=== PATIENT | male | born 1975 | race Caucasian/White ===

== ENCOUNTER 2019-12-31 05:57 | Day surgery (SDC) | payer OTHER, SELFPAY ==
[2019-12-31 06:30] VITALS: BP 114/74; PULSE 85; RESP 16; TEMP 36.8; O2SAT 96; BMI 21.6
[2019-12-31] MEDS: Lactated Ringers 1,000 ML 100 ML IV (06:37)
[2019-12-31] MEDS: Bupivacaine Mpf 0.5% 30 ML VIAL (07:13)
[2019-12-31] MEDS: Cefazolin 2 GM in 0.9% Normal Saline 100 ML IV (07:28)
--- NOTE | 2019-12-31 07:30 | SPE_PTH ---
PATIENT: KAELYN THOMAS Jr. LOC: [facility] U#:[id number] AGE/SX: 44/M ROOM: RE12/31/[address]: Dr. Mushtaq Bryant MD : 1975 BED: DIS: 12/31/2019 SPEC #: [id number] RECD: 12/31/19 08:34 STATUS: DON REMark #: [id number] MARLEEN: 12/31/19 07:[address]: Mushtaq Bryant DEPT: SURGICAL PATHOLOGY RECD BY: Mac Montejo ENTERED: 12/31/19 09:39 SP TYPE: SPERMATOCE OT DR: Dr. Xochitl Juares, DO Tissues: SPERMATOCELE Procedures: Surgery Specimen Level III HEADER OPERATION: Left spermatocelectomy PRE-OP DIAGNOSIS: Left spermatocele TISSUE SUBMITTED: Left spermatocele sac MICROSCOPIC DIAGNOSIS Left spermatocele sac, excision: Consistent with spermatocele. Epididymis with no pathologic change. AM:danuta 01/03/20 MICROSCOPIC DESCRIPTION Slides are reviewed. GROSS DESCRIPTION Received in fixative is one container labeled with the patient's name and designated left spermatocele. The specimen consists of a collapsed cystic piece of tissue measuring 3.8 x 2.5 x 0.5 cm. The specimen is inked and serially sectioned and reveals a collapsed cyst occupying almost the entire specimen. The inner cyst wall is smooth. The entire specimen is submitted in two cassettes. / SJ:danuta 12/31/19 TC:5 CPT: 77390
--- NOTE | 2019-12-31 07:35 | PCM.HP.STD ---
History of Present Illness Date of Admission: 12/31/19 Chief Complaint: left large spermatocele The patient is a 44 year old male with left spermatocele, presents for spermatocelectomy Past Medical History Allergies No Known Allergies Allergy (Verified 12/31/19 06:29) Home Medications: Ambulatory Orders Medication Instructions Recorded Multivit-Min/Folic/Vit K/Lycop 1 ea PO DAILY 12/28/19 [Men's Multivitamin Caplet] Surgical History: no surgical history Smoking Status: Current every day smoker Review of Systems Constitutional: Denies: Chills, Fever, Weight Change HEENT: Denies: Head Aches, Sinus Congestion, Sinus Drainage Cardiovascular: Denies: Chest Pain, Palpitations Respiratory: Denies: Cough, Shortness of breath at rest, Sputum production Gastrointestinal: Denies: Abdominal Pain, Nausea, Vomiting Genitourinary: Denies: Dysuria Musculoskeletal: Denies: Joint Pain, Joint Tenderness Skin: Denies: Rash, Wounds Neurological: Denies: Numbness, Tingling, Focal weakness Psychiatric: Denies: Anxiety, Depression, Homicidal Ideations, Suicidal Ideations Hematologic/ Lymphatic: Denies: Easy Bruising, Easy Bleeding VTE Information - Inpt Only VTE Present on Admission: No VTE Mechan Device Prophylaxis: SCD's - Physical Exam Vitals/I&O's: Vital Signs Temp Pulse Resp BP Pulse Ox 98.2 F 85 16 114/74 96 12/31/19 06:30 12/31/19 06:30 12/31/19 06:30 12/31/19 06:30 12/31/19 06:30 Oxygen Delivery Method Room Air Weight: 64.6 kg Body Mass Index (BMI) 21.6 General: Alert, Oriented x3, Cooperative HEENT: Atraumatic, PERRLA, EOMI, Normocephalic Neck: Supple, No JVD, Negative Carotid Bruits Lungs: Clear to auscultation, Normal air movement Cardiovascular: Regular rate, No murmurs Abdomen: Bowel Sounds Present, Soft, Non Tender Extremities: No edema, Capillary Refill Less than 3 Seconds Skin: No rashes, No breakdown Musculoskeletal: No Tenderness to Palpation of Joints or Extremities Neurological: Cranial nerves II-XII grossly intact Psych/Mental Status: Normal Affect, Appropriate Laboratory Results 12/30/19 16:50: COVID-19 (JOSE ANTONIO) Negative Current Medications Cefazolin Sodium 2 gm/ Sodium (Chloride) 110 mls @ 150 mls/hr IV PREOP ONE Stop: 12/31/19 07:58 Lactated Ringer's () 1,000 mls @ 100 mls/hr IV .Q10H BEREKET Last Admin: 12/31/19 06:37 Dose: 100 mls/hr Documented by: Assessment/Plan Presented for left spermatocelectomy.
--- NOTE | 2019-12-31 08:07 | DCINST_ITS ---
Discharge Diet: No Restrictions Discharge Activity: Return to Normal Activity, May Not Drive - for 2 days., May not drive while taking narcotic pain medications. Additional Activity Instructions:: Please be aware that pain medications may cause nausea. You should typically eat light foods as you take your pain medication. Pain medication may cause constipation, if this is a problem for you, please discuss with your doctor. Call your doctor if your incision/area has: Continuous Slow Oozing, Sudden Increased Bleeding, Increased Pain/ Swelling Allergies/Adverse Reactions: Allergies No Known Allergies Allergy (Verified 12/31/19 06:29) Medications to take at Discharge Multivit-Min/Folic/Vit K/Lycop [Men's Multivitamin Caplet] 1 ea PO DAILY 12/28/19 Primary Care Physician: Xochitl Juares DO [Primary Care Provider] - Test Results: Test results from this visit will be discussed in further detail at your follow- up appointment, if applicable. Please Follow Up With: Mushtaq Bryant MD When: in 2 weeks, please call to make an appointment.
--- NOTE | 2019-12-31 08:09 | PCM.OPRPT ---
Report of Operation Date of Procedure: 12/31/19 Pre-Operative Diagnosis: Left spermatocele Post-Operative Diagnosis: Same Surgery/Procedure Performed:: Left spermatocele ectomy Description of Surgical Findings:: 44-year-old male who presents to the hospital for a removal of a large symptomatic spermatocele. On the left side he has a 3 cm dense and tense spermatocele that is been given him pain and discomfort. We talked about the options of management for the spermatocele including observation, percutaneous drainage, and surgical removal. Patient wanted to have this spermatocele removed so we proceeded with surgery today. We talked about the risk of procedure including bleeding infection recurrence of spermatocele, chronic pain and discomfort. Patient was taken back to the operating room he was placed supine on the table in OR room 3. After induction of anesthesia by Dr. Galdamez. He was placed on the table in the supine condition. The scrotum was shaved, prepped with Betadine and then we draped the scrotum. On inspection the right testicle is normal normal right vas deferens, left testicle was normal normal left vas deferens but there was a large dense spermatocele above the left testicle. I then infiltrated the skin above the spermatocele and made a 1.5 cm incision above the spermatocele on the left hemiscrotum. I used electrocautery to dissect through the skin and subcutaneous layer until I encountered the tunica vaginalis over the spermatocele this was opened up the spermatocele was then drained with a 25-gauge needle to decompress the spermatocele. After draining the spermatocele then I was able to deliver the spermatocele through the small incision. I then dissected the spermatocele off the testicle there was a small injury to the testicle and some some end of the first tubules came through the small entry into the testicle this was closed with chromic stitches. Then the rest this spermatocele sac was then dissected off the testicle, the spermatocele that was then removed and then cauterized the dissection site to make sure there was no bleeding I then allow the testicle to fall back into the its place I then closed the small 1.5 cm incision with chromic stitch in 2 layers. Fluffs and dressings were placed on the incision the patient anesthetic was reversed is taken back to PACU in good condition. Type of Anesthesia:: General Drains: none - Admit VTE Documentation VTE Present on Admission: No VTE Mechan Device Prophylaxis: SCD's
[2019-12-31 08:16] VITALS: BP 110/85; BP 114/74; PULSE 84; RESP 18; TEMP 36.7; O2SAT 96
[2019-12-31] MEDS: Ketorolac 15 MG/ML Vial IV (08:25)
[2019-12-31 08:28] VITALS: BP 114/74; BP 116/95; PULSE 85; RESP 18; O2SAT 95
[2019-12-31 08:36] VITALS: BP 114/74; BP 122/95; PULSE 82; RESP 18; TEMP 36.8; O2SAT 96
[2019-12-31 09:11] VITALS: BP 114/74; BP 114/88; PULSE 88; RESP 16; O2SAT 97
== END 2019-12-31 09:24 | disposition home or self-care (01) ==
LOC: SDC 05:58 → AC 06:00
PROVIDERS: Anesthesiology; PCP Family Medicine; Referring Provider Urology; Visit Provider Urology
PROC: (CPT 54840; principal; 2019-12-31 07:15)
DX: N43.41 Spermatocele of epididymis, single (principal); Z11.59 Encounter for screening for other viral diseases; F17.200 Nicotine dependence, unspecified, uncomplicated
CPT/HCPCS: 00920; 54840; 87635; 88304; G2023; J7120; J2405; U0003